=== PATIENT | female | born 1975 | race Caucasian/White ===

== ENCOUNTER 2017-10-01 20:55 | Emergency (ER) | payer OTHER ==
[~2017-10-01] VITALS: Ht 175.3 cm; Wt 72.1 kg
[2017-10-02] MEDS ORDERED: IBUPROFEN800 MG PO (05:45)
== END 2017-10-02 06:12 | disposition home or self-care (01) ==
LOC: ER 20:55
DX: N83.291 Other ovarian cyst, right side (principal)

== ENCOUNTER 2018-05-17 05:55 | Day surgery (SDC) | payer OTHER ==
[~2018-05-17 05:55] MED LIST: IBUPROFEN800 MG PO; TAPAZOLE10 MG
[2018-05-17] MEDS ORDERED: PERCOCET 5-3251 EACH PO (10:41)
[2018-05-17] MEDS ORDERED: DICLOFENAC POTA50 MG PO (10:41)
== END 2018-05-17 12:45 | disposition home or self-care (01) ==
LOC: CIR.AMB 05:55
DX: N80.0 Endometriosis of uterus (principal)